=== PATIENT | male | born 1955 | race Caucasian/White ===

== ENCOUNTER 2021-05-31 01:35 | Inpatient (IN) | payer BC, MEDICARE, SELFPAY ==
[2021-05-31] VITALS (22 sets, daily range): BP systolic 107–151; BP diastolic 56–107; PULSE 98–164; RESP 16–34; TEMP 36.6–36.8; O2SAT 90–97; BMI 54.2; BMI 52.7; BMI 47.7
--- NOTE | 2021-05-31 01:44 | ECG_ITS ---
APPROVED REPORT Exam: Resting ECG HR:164 bpm ECG Measurements Heart Rate 164 AXES W[place] 128 P QRSd 120 QRS 111 QT 288 T 34 QTc 475 Conclusion Sinus tachycardia with fusion complexes Right bundle branch block Abnormal ECG Electronically signed by : Ricky Guillermo MD 06/02/2021 06:23:29
--- NOTE | 2021-05-31 01:53 | CT_ITS ---
PROCEDURE INFORMATION: Exam: CT Abdomen And Pelvis With Contrast Exam date and time: 05/31/2021 1:53 AM Age: 66 years old Clinical indication: Nausea; Abdominal pain; Additional info: Abd pain TECHNIQUE: Imaging protocol: Computed tomography of the abdomen and pelvis with contrast. Radiation optimization: All CT scans at this facility use at least one of these dose optimization techniques: automated exposure control; mA and/or kV adjustment per patient size (includes targeted exams where dose is matched to clinical indication); or iterative reconstruction. Contrast material: ISOVUE; Contrast volume: 75 ml; Contrast route: IV; COMPARISON: CR XR HIP BI W PEL1V 05/31/2021 2:16 AM FINDINGS: Lungs: No mass/infiltrate at either lung base. No pleural effusion. Minimal linear atelectasis within the lingula. Liver: The liver is normal in size and attenuation. No intrahepatic biliary dilitation. Gallbladder and bile ducts: Normal. No calcified stones. No ductal dilation. Gallbladder wall thickness is normal. Pancreas: Normal. No ductal dilation. Spleen: Normal. No splenomegaly. Adrenal glands: The right adrenal gland is obscured. The left adrenal gland is felt to be unremarkable. Kidneys and ureters: There is a 2.6 cm exophytic cyst arising from the superior pole the left kidney. No hydronephrosis. Stomach and bowel: Attention is directed to the distal small bowel and adjacent mesentery. There are 2 masses identified within the right hemiabdomen. They appear to arise within or adjacent to portions of the ileum. The more lateral mass measures 6.1 x 5.4 x 9.3 cm. The more medial mass abuts portions of the air-filled sigmoid colon and ileum. It has central cavitation. It measures 10.3 x 9.3 x 9.9 cm. There is no evidence of intestinal obstruction. Appendix: Unremarkable. Intraperitoneal space: Unremarkable. No free air. No significant fluid collection. Retroperitoneal space: Attention is directed to the retroperitoneum. There is a mass identified within the retroperitoneum. The superior extent of the mass is the manuel of the diaphragm. The inferior extent of the mass is the lower poles of the kidneys. The mass encases portions of the inferior vena cava, superior mesenteric artery, and the right renal artery. No evidence of ureteral encasement. It abuts the celiac artery and the left renal artery. It has ill-defined margins. It measures 12.9 x 10.0 x 7.1 cm. Vasculature: Atheromatous calcification noted. No evidence of aortic aneurysm or dissection. Lymph nodes: There are no discrete enlarged lymph nodes identified. Urinary bladder: Diffuse thickening of the wall of the bladder. No evidence of visible mural nodularity. Reproductive: Central prostatic calcification is identified. Bones/joints: There are degenerative changes within the thoracic and lumbar spine. No acute fracture. Soft tissues: Unremarkable. IMPRESSION: 1. There are 2 masses identified within the mesentery. They are likely related to the ileum. Their sizes are as described. The more medial mass contains an area of central cavitation which is contiguous with small bowel. Whether this represents an irregular lumen surrounding an abnormal loop of ileum or this represents a cavitation which communicates with the small bowel is difficult to determine on this examination. 2. Large retroperitoneal mass, as described. Overall primary diagnostic consideration for all masses would be lymphoma. 3. The right adrenal gland cannot be identified as it is contiguous with the retroperitoneal mass. 4. Diffuse thickening of the wall of the bladder. Exact etiology for this finding
--- NOTE | 2021-05-31 01:58 | XR_ITS ---
PROCEDURE INFORMATION: Exam: XR Bilateral Hips Exam date and time: 05/31/2021 1:58 AM Age: 66 years old Clinical indication: Hip pain and pelvic pain; Bilateral TECHNIQUE: Imaging protocol: XR bilateral hips. Views: 2 views of hips with pelvis when performed. COMPARISON: No relevant prior studies available. FINDINGS: Bones/joints: No evidence of acute fracture. There is mild spurring noted along the superior and lateral articular margin of the left femoral head. Mild narrowing of the left hip joint space. There is prominent degenerative changes noted within the lower lumbar spine. Soft tissues: Unremarkable. IMPRESSION: There are mild degenerative changes noted within the left hip. Degenerative changes of the lumbar spine. No evidence of acute fracture. No overlying soft tissue swelling.
--- NOTE | 2021-05-31 01:59 | XR_ITS ---
PROCEDURE INFORMATION: Exam: XR Chest Exam date and time: 05/31/2021 1:59 AM Age: 66 years old Clinical indication: Shortness of breath; Additional info: SOA TECHNIQUE: Imaging protocol: XR of the chest. Views: 2 views. COMPARISON: No relevant prior studies available. FINDINGS: Lungs: Unremarkable. No consolidation. Linear atelectasis or scar at the left lung base. Pleural spaces: Unremarkable. No pleural effusion. No pneumothorax. Heart/Mediastinum: Unremarkable. No cardiomegaly. Bones/joints: Prominent degenerative changes of the thoracic spine. There is narrowing and hypertrophic changes noted within the right acromioclavicular joint. IMPRESSION: 1. No evidence of alveolar consolidation or congestive failure. 2. Minimal linear scar or atelectasis at the left lung base.
[2021-05-31 02:01] LABS: Basophils # 0.1 K/mm3 (0-0.2); Basophils % 0.6 % (0.1-2.0); Eosinophils # 0.2 K/mm3 (0.0-0.4); Eosinophils % 1.4 % (0.1-12.0); Hematocrit 39.7 % (42.0-52.0); Hemoglobin 12.4 g/dL (14.1-18.0); Lymphocytes # 1.7 K/mm3 (0.7-4.5); Lymphocytes % 12.5 % (10-50); Mean Corpuscular HGB Conc 31.2 g/dL (31.8-35.4); Mean Corpuscular Hemoglobin 24.1 pg (27.0-31.2); Mean Corpuscular Volume 77.3 fl (80-94); Mean Platelet Volume 7.7 fl (7.4-10.4); Monocytes # 0.8 K/mm3 (0.1-1.0); Monocytes % 5.8 % (1.7-9.3); Neutrophils # 10.6 K/mm3 (1.8-7.8); Neutrophils % 79.6 % (37.0-80.0); Platelet Count 945 K/mm3 (142-424); Red Blood Count 5.13 M/mm3 (4.60-6.20); Red Cell Distribution Width 18.2 % (11.5-17.5); White Blood Count 13.3 K/mm3 (4.8-10.8)
[2021-05-31 02:25] LABS: Alanine Aminotransferase 34 U/L (12-78); Albumin Level 3.6 g/dl (3.5-5.0); Albumin/Globulin Ratio 1.1 (1.1-1.8); Alkaline Phosphatase 155 U/L (38-126); Aspartate Amino Transferase 50 U/L (17-59); Bilirubin,Total 0.5 mg/dl (0.2-1.3); Carbon Dioxide 19 mmol/L (22.0-30.0); Chloride 102 mmol/L (98-107); Globulin 3.4 g/dL (1.3-3.2); Glucose 180 mg/dl (74-100); Sodium 137 mmol/L (136-145)
[2021-05-31 02:30] LABS: C-Reactive Protein 256.7 mg/L (0-4)
[2021-05-31 02:40] LABS: Erythrocyte Sedimentation Rate 89 mm/hr (0-20)
--- NOTE | 2021-05-31 02:41 | HMH.EDWEAK ---
ED Disposition Clinical Impression: Atrial flutter with rapid ventricular response Abdominal mass Qualifiers: Abdominal location: generalized Qualified Code(s): R19.07 - Generalized intra-abdominal and pelvic swelling, mass and lump Disposition: Admitted As Inpatient Condition on Discharge: Serious Referrals: Provider,Referral, [Primary Care Provider] - - Critical Care Critical Care Time: No Attestation: On 05/31/21, the high probability of a clinically significant, sudden or life threatening deterioration of the following system(s) required my full and direct attention, intervention and personal management. The time I documented below is in addition to time spent performing reported procedures but includes the following listed in this critical care notation. Medical Decision Making - Medical Records Medical records reviewed: Yes: I reviewed the patient's medical records. - Regan Inquiry Pt receiving controlled substance: No Vital Signs: 05/31/21 01:35 05/31/21 02:45 05/31/21 03:06 Temperature 97.8 F Temperature Source Oral Pulse Rate 139 H 134 H Pulse Rate [Right] 164 H Respiratory Rate 26 H 34 H Blood Pressure 127/107 H 114/60 Blood Pressure [Right Arm] 151/98 H Blood Pressure Mean 66 Blood Pressure Mean [Right Arm] 115 02 Sat by Pulse Oximetry 95 97 97 05/31/21 03:49 05/31/21 03:50 05/31/21 04:00 Temperature Temperature Source Pulse Rate 125 H 124 H 126 H Pulse Rate [Right] Respiratory Rate 24 22 22 Blood Pressure 107/65 L 129/72 116/70 Blood Pressure [Right Arm] Blood Pressure Mean 82 77 Blood Pressure Mean [Right Arm] 02 Sat by Pulse Oximetry 91 L 93 L 95 05/31/21 04:15 05/31/21 04:30 05/31/21 04:45 Temperature Temperature Source Pulse Rate 110 H 107 H 105 H Pulse Rate [Right] Respiratory Rate 20 22 22 Blood Pressure 117/67 116/66 111/66 Blood Pressure [Right Arm] Blood Pressure Mean 85 80 77 Blood Pressure Mean [Right Arm] 02 Sat by Pulse Oximetry 95 93 L 93 L - Lab Data Lab results reviewed: Yes: I reviewed the patient's lab results. Lab Results 05/31/21 01:42: WBC 13.3 H, RBC 5.13, Hgb 12.4 L, Hct 39.7 L, MCV 77.3 L, MCH 24.1 L, MCHC 31.2 L, RDW 18.2 H, Plt Count 945 H*, MPV 7.7, Neut % (Auto) 79.6, Lymph % (Auto) 12.5, [place] % (Auto) 5.8, Eos % (Auto) 1.4, Baso % (Auto) 0.6, Neut # (Auto) 10.6 H, Lymph # (Auto) 1.7, [place] # (Auto) 0.8, Eos # (Auto) 0.2, Baso # (Auto) 0.1, ESR 89 H 05/31/21 01:42: Sodium 137, Potassium 4.0, Chloride 102, Carbon Dioxide 19 L, Anion Gap 20.0 H, BUN 28 H, Creatinine 0.90, Estimated Creat Clear 83, Estimated GFR 85, Est GFR ( Amer) 102, Glucose 180 H, Calcium 10.0, Total Bilirubin 0.5, AST 50, ALT 34, Alkaline Phosphatase 155 H, Troponin I < 0.01, C-Reactive Protein 256.7 H, Total Protein 7.0, Albumin 3.6, Globulin 3.4 H, Albumin/Globulin Ratio 1.1, Procalcitonin 0.204 05/31/21 01:42: Lactate 7.3 H 05/31/21 01:42: NT-Pro-B Natriuret Pep 366 H, TSH 6.96 H 05/31/21 01:42: Free T4 2.03 05/31/21 01:43: Salicylates < 1.0 L 05/31/21 02:01: POC Glucose 176 H 05/31/21 02:50: SARS-CoV-2 (PCR) Not detected, Influenza A Untype (PCR) Not detected, Influenza Type B (PCR) Not detected Result diagrams: 05/31/21 01:42 05/31/21 01:42 Orders (Tests/Meds): ED MEDICATIONS Generic Name Dose Route Start Last Admin Trade Name Freq PRN Reason Stop Dose Admin Diltiazem HCl 100 mg/ Sodium 100 mls @ 5 mls/hr 05/31/21 03:00 05/31/21 02:45 Chloride IV 06/30/21 02:59 5 mls/hr .Q20H MARIE Administration Protocol Sodium Chloride 1,000 mls @ 999 mls/hr 05/31/21 02:58 12/16/21 02:58 Sod Chlor 0.9% 1000ml Bag IV 05/31/21 03:58 999 mls/hr .Q1H1M MARIE Administration Sodium Chloride 1,000 mls @ 999 mls/hr 05/31/21 05:00 05/31/21 04:55 Sod Chlor 0.9% 1000ml Bag IV 05/31/21 06:00 999 mls/hr .Q1H1M MARIE Administration Sodium Chloride 1,000 mls @ 999 mls/hr 05/31/21 04:00 05/31/21 04
[2021-05-31 02:53] LABS: Blood Urea Nitrogen 28 mg/dl (9-20); Creatinine Clearance Estimated 83 mL/min (50-200); Estimated Glomerular Filt Rate 85 ml/min (>60); GFR (African American) 102 ML/MIN (>60)
[2021-05-31 02:55] LABS: Salicylate < 1.0 mg/dL (2.0-20.0)
[2021-05-31 02:55] LABS: Lactic Acid 7.3 mmol/L (0.7-2.1)
[2021-05-31 03:02] LABS: NT Pro Brain Natriuretic Pep. 366 pg/mL (0-125)
[2021-05-31 03:06] LABS: Coronavirus 19, PCR Not Detected (NotDetected); Influenza A, PCR Not Detected (NotDetected); Influenza B, PCR Not Detected (NotDetected)
[2021-05-31 03:07] LABS: Troponin I < 0.01 ng/ml (0.00-0.034)
[2021-05-31 03:10] LABS: Procalcitonin 0.204 ng/mL (0.0-2.0)
[2021-05-31 03:11] LABS: Free T4 (Free Thyroxine) 2.03 ng/dl (0.78-2.19)
[2021-05-31 03:24] LABS: Thyroid Stimulating Hormone 6.96 uIU/mL (0.465-4.68)
--- NOTE | 2021-05-31 03:24 | PC.NURSE ---
pt to ct w/ S Akanksha RN at side
--- NOTE | 2021-05-31 03:50 | PC.NURSE ---
Titrated Cardizem gtt to 15ml/hr, pt assisted into recliner on return from ct scan
--- NOTE | 2021-05-31 04:46 | ECG_ITS ---
APPROVED REPORT Exam: Resting ECG HR:105 bpm ECG Measurements Heart Rate 105 AXES VA 168 P 28 QRSd 140 QRS -29 QT 374 T -3 QTc 494 Conclusion Sinus tachycardia Right bundle branch block Abnormal ECG Electronically signed by : Ricky Guillermo MD 06/02/2021 06:23:18
[2021-05-31 04:48] LABS: POC Glucose,Bedside 176 (70-110)
--- NOTE | 2021-05-31 04:48 | PC.NURSE ---
Appears on tele that pt has converted to SR. 2nd EKG obtained and per MD stop cardizem. No new orders at this time for PO cardizem.
--- NOTE | 2021-05-31 04:50 | PC.NURSE ---
brought back to room to discuss POC and results with Dr. Álvarez.
--- NOTE | 2021-05-31 05:22 | PC.NURSE ---
Dr. Álvarez s/w Dr. Guillermo
[2021-05-31 05:23] LABS: Reflex Lactic Add Lactic Reflex
--- NOTE | 2021-05-31 05:24 | PC.NURSE ---
notified warehouse order filler that pt needed a bed
[2021-05-31 05:43] LABS: Lactic Acid Follow Up (RFLX 1) 3.1 mmol/L (0.7-2.1)
[2021-05-31 05:48] LABS: Troponin I < 0.01 ng/ml (0.00-0.034)
--- NOTE | 2021-05-31 06:15 | PC.NURSE ---
Report given to Barbie SEVILLA on fl
--- NOTE | 2021-05-31 06:49 | PC.NURSE ---
patient up to floor via wheelchair @ this time.
[2021-05-31 07:23] LABS: Reflex Lactic (2 hrs) Add Lactic Reflex
--- NOTE | 2021-05-31 07:28 | P.CONPHA_ITS ---
[facility] Pharmacy VTE Monitoring - Patient Demographics Admission date: 05/31/21 Report Date: 05/31/21 Time: 07:30 Allergies/Adverse Reactions: Patient Allergies No Known Allergies Allergy (Verified 05/31/21 01:51) Height: 1.85 m Weight: 163.3 kg Patient Problems: Current Active Problems Abdominal mass (Acute) Atrial flutter with rapid ventricular response (Acute) - VTE Risk Labs: VTE Related Lab Results Hgb 12.4 g/dL (14.1-18.0) L 05/31/21 01:42 Hct 39.7 % (42.0-52.0) L 05/31/21 01:42 Plt Count 945 K/mm3 (142-424) H* 05/31/21 01:42 BUN 28 mg/dl (9-20) H 05/31/21 01:42 Creatinine 0.90 mg/dl (0.66-1.25) 05/31/21 01:42 Estimated Creat Clear 83 mL/min (50-200) 05/31/21 01:42 Clinical Trial Participant: No - Prophylaxis VTE Prophylaxis Ordered?: Yes Types of VTE Prophylaxis: TEDS Knee High
--- NOTE | 2021-05-31 08:00 | CA_ITS ---
APPROVED REPORT EXAM: Comprehensive 2D, Doppler, and color-flow Echocardiogram Business Banking Officer: Juliann Levi CRT Ht: 6 ft 1 in Wt: 400lbs BSA: 2.89 BP: 111/66 mmHg Indications: Shortness of Breath, Obesity, Atrial Flutter 2D Dimensions LVOT 2.49 cm (M/F) 1.5-2.5 LA Volume 69.80 mL LA Volume Index 24.20 mL/m2 (M/F) 16-34 M-Mode Dimensions RVDd 3.73 cm (0.9-2.6) LA Diam 3.55 cm (1.9-4.0) LVDd 5.37 cm (3.5-5.7) Ao Diam 4.80 cm (2.0-3.7) LVDs 3.87 cm (3.5-5.7) IVSd 1.63 cm (0.6-1.1) PWd 0.66 cm (0.6-1.1) EF (Teich) 53.60% FS 27.90% EDV (Teich) 139.50 mL TAPSE 1.97 (<1.7) ESV (Teich) 64.70 mL LV Diastology E Decel Time 150.00 (160-240 msec) E/A Ratio 0.41 MED E' 4.30 (< 7 cm/sec) MED A' 13.40 cm/s E'/MED E' Ratio 8.28 (>14) LAT E' 12.50 (<10 cm/sec) LAT A' 14.00 cm/s E/LAT E' Ratio 2.85 (>14) Aortic Valve AO Peak GR. 7.20 mmHg Mitral Valve MV E Max Juancarlos. 36.00 (40-130 cm/s) MV A Velocity 87.00 (40-130 cm/s) E/A Ratio 0.41 MV Decel. Time 150.00 (160-240 ms) MV PHT 44.00 ms Pulmonary Valve PV Peak Velocity 118.00 (50-150 cm/s) Tricuspid Valve TR P. Velocity 169.00 cm/s RAP Estimate 10.00 mmHg RVSP 21.40 mmHg Left Ventricle Left atrium is mildly enlarged, left ventricle is normal size, mild concentric left ventricular hypertrophy, visually estimated ejection fraction 55% with no regional wall motion abnormality, diastolic parameters are inconclusive. Right Ventricle Right atrium and right ventricle mildly enlarged with normal contractility. Aortic Valve Aortic valve is minimally thickened and fibrosed, there is no aortic stenosis or aortic insufficiency. Mitral Valve Mitral valve grossly normal, there is trace mitral regurgitation. Tricuspid Valve Tricuspid grossly normal, there is trace tricuspid regurgitation, tricuspid regurgitation jet velocity is inadequate for calculation of the right ventricular systolic pressure. Pulmonic Valve Pulmonic valve is poorly visualized. Great Vessels Aortic root is normal size. Inferior vena cava is poorly visualized. Pericardium No significant pericardial effusion noted. Conclusion 1. Mild biatrial enlargement, normal left ventricular size, mild concentric left ventricular hypertrophy, visually estimated ejection fraction 55% with no regional wall motion abnormality, diastolic parameters are inconclusive. 2. Mildly enlarged right ventricle with normal contractility. 3. Trace mitral and tricuspid regurgitation. 4. No significant pericardial effusion noted. 5. Inferior vena cava is poorly visualized. Electronically signed by : Alireza Goodson MD 05/31/2021 13:53:55
--- NOTE | 2021-05-31 08:34 | HMH.GSCON ---
*Admission Date: 05/31/21 *Reason for consult:: Abdominal masses *History of present illness: This is a 66-year-old gentleman who was seen in the emergency department for evaluation regarding weakness and abdominal pain/bloating. Evaluation included a CT scan that revealed complex mass-like lesions within the distal small bowel, as well as, retroperitoneal mass with encasement of the IVC. Review of Systems - Constitutional Denies chills - Eyes Denies change in vision - *Cardiovascular Denies chest pain - *Respiratory Denies cough - *Gastrointestinal Reports abdominal pain, Reports bloating - *Neurologic Denies seizure-like activity [facility] History Medical History: Denies:: Cancer, Diabetes Mellitus Type 1, Diabetes Mellitus Type 2, MRSA *Have you ever received a pneumonia vaccine?: No *Have you received a flu vaccine this season?: No Laterality Cases: Bilateral: Tonsillectomy Amputation: No Fractures: No - *Social History Last grade of school completed: 11th or 12th Smoking Status: Never smoker Alcohol Intake: never *Occupational Status:: retired Housing: house Household Members: spouse *Travel in the last 8 weeks: None Family Hx:: No significant family history Meds Home Medications Medication Instructions Recorded Confirmed Type No Known Home Medications 05/31/21 05/31/21 History Allergies Allergy/AdvReac Type Severity Reaction Status Date / Time No Known Allergies Allergy Verified 05/31/21 01:51 Exam Vital signs and Labs for Last 24 Hours: Temp Pulse Resp BP Pulse Ox 98.2 F 103 H 21 114/72 93 L 05/31/21 06:17 05/31/21 06:17 05/31/21 06:17 05/31/21 06:17 05/31/21 06:00 Laboratory Results - last 24 hr 05/31/21 01:42: WBC 13.3 H, RBC 5.13, Hgb 12.4 L, Hct 39.7 L, MCV 77.3 L, MCH 24.1 L, MCHC 31.2 L, RDW 18.2 H, Plt Count 945 H*, MPV 7.7, Neut % (Auto) 79.6, Lymph % (Auto) 12.5, [place] % (Auto) 5.8, Eos % (Auto) 1.4, Baso % (Auto) 0.6, Neut # (Auto) 10.6 H, Lymph # (Auto) 1.7, [place] # (Auto) 0.8, Eos # (Auto) 0.2, Baso # (Auto) 0.1, ESR 89 H 05/31/21 01:42: Sodium 137, Potassium 4.0, Chloride 102, Carbon Dioxide 19 L, Anion Gap 20.0 H, BUN 28 H, Creatinine 0.90, Estimated Creat Clear 83, Estimated GFR 85, Est GFR ( Amer) 102, Glucose 180 H, Calcium 10.0, Total Bilirubin 0.5, AST 50, ALT 34, Alkaline Phosphatase 155 H, Troponin I < 0.01, C-Reactive Protein 256.7 H, Total Protein 7.0, Albumin 3.6, Globulin 3.4 H, Albumin/Globulin Ratio 1.1, Procalcitonin 0.204 05/31/21 01:42: Lactate 7.3 H 05/31/21 01:42: NT-Pro-B Natriuret Pep 366 H, TSH 6.96 H 05/31/21 01:42: Free T4 2.03 05/31/21 01:43: Salicylates < 1.0 L 05/31/21 02:01: POC Glucose 176 H 05/31/21 02:50: SARS-CoV-2 (PCR) Not detected, Influenza A Untype (PCR) Not detected, Influenza Type B (PCR) Not detected 05/31/21 05:16: Troponin I < 0.01 05/31/21 05:16: Lactate 3.1 H I & O for Last 24 hours: Intake & Output 05/28/21 05/29/21 05/30/21 05/31/21 11:59 11:59 11:59 11:59 Intake Total 3000 / 3000 Balance 3000 / 3000 Weight 360 lb 0.238 oz Radiology Reports for the Last 24 Hours: CT scan of abdomen/pelvis IMPRESSION: 1. There are 2 masses identified within the mesentery. They are likely related to the ileum. Their sizes are as described. The more medial mass contains an area of central cavitation which is contiguous with small bowel. Whether this represents an irregular lumen surrounding an abnormal loop of ileum or this represents a cavitation which communicates with the small bowel is difficult to determine on this examination. 2. Large retroperitoneal mass, as described. Overall primary diagnostic consideration for all masses would be lymphoma. 3. The right adrenal gland cannot be identified as it is contiguous with the retroperitoneal mass. 4. Diffuse thickening of the wall of the bladder. Exact etiology for this finding is uncertain although the possibility of underlying neoplasm in
[2021-05-31 09:32] LABS: Lactic Acid Follow up (RFLX 2) 2.7 mmol/L (0.7-2.1)
[2021-05-31 09:43] LABS: Troponin I < 0.01 ng/ml (0.00-0.034)
--- NOTE | 2021-05-31 09:43 | CT_ITS ---
PROCEDURE: [facility] CLINICAL HISTORY: retroperitoneal mass COMPARISON: CT CT ABDOMEN PELVIS W CON from 05/31/2021 TECHNIQUE: Patient was scheduled for a right-sided retroperitoneal biopsy. However, when the patient was placed on his stomach the posterior costophrenic sulcus extended below the intended area of biopsy. It was noted on the pre biopsy images that there was a destructive lesion of the left L1 transverse process with a paraspinal mass. This area was then targeted for biopsy. Following obtaining informed consent and time-out procedure with moderate sedation with 1 mg of Versed and 50 mcg of fentanyl IV with close monitoring of the patient's vitals, under aseptic technique and local anesthesia with 1 percent buffered lidocaine, guiding needle was inserted into the left paraspinal mass. Three core biopsies were obtained through the guiding needle and put in formalin and 3 additional core biopsies were obtained and put in RPMI. FNA was performed with the indwelling needle following the biopsies. The patient tolerated the procedure well without evidence of immediate complication. FINDINGS: Pathology: Large B-cell lymphoma. Please see pathologist report. IMPRESSION: Uneventful and successful CT guided biopsy of the left paraspinal mass demonstrating large B-cell lymphoma. Dictated by: Hi Carty MD 06/05/2021 08:36 Hi Carty MD in [place] 06/05/2021 08:36
--- NOTE | 2021-05-31 13:33 | CT_ITS ---
PROCEDURE: CT CHEST WO CON CLINICAL INDICATION: CT BX Retroperitoneal mass COMPARISON: CT CT ABDOMEN PELVIS W CON from 05/31/2021 TECHNIQUE: Axial images obtained with sagittal and coronal reformats. All CT scans at the facility use one or more dose reduction, viz: automated exposure control, ma/kV adjustment per patient size (including targeted exams where dose is matched to indication, i.e. head), or iterative reconstruction technique. FINDINGS: CT chest performed without contrast for planning purposes look for other areas to biopsy besides the risky retroperitoneal mass. Mildly prominent node is present in the left supraclavicular region just to the left of the thyroid gland measuring 2.5 x 2.7 cm. No axillary mass was identified. No axillary adenopathy. No mediastinal or hilar mass. Atelectatic or fibrotic changes are present in the right lower lobe. Mild pleural thickening in the right lower lobe posteriorly. Mild atelectasis or fibrosis in the lingula and left lower lobe. There is a pathologic fracture involving the right 3rd rib laterally with minimal medial displacement of the anterior fracture fragment with overlying soft tissue swelling. A lytic lesion involves the right 7th rib laterally with overlying soft tissue swelling/mass lytic lesion involves the right 2nd rib laterally with overlying soft tissue prominence pleural thickening is present medial to the left 7th rib with some faint lytic areas in the 7th rib at this area. There are degenerative changes of the thoracic spine. A lytic lesion is also present involving the right 6th rib posteriorly with some overlying pleural thickening. There is a lytic lesion involving the base of the acromion on the left. Retroperitoneal mass centrally and on the right once again noted. While reviewing the previous abdomen CT there was noted to be a paraspinal mass on the left at the L1 area causing destruction of the transverse process on the left. This lesion was the area targeted for biopsy and not a risky retroperitoneal mass. IMPRESSION: Numerous skeletal metastasis as described above including bilateral ribs with pathological fractures as well as the base of the left acromion and the left L1 transverse process with overlying soft tissue mass left supraclavicular adenopathy also noted. Dictated by: Hi Carty MD 05/31/2021 16:40 Hi Carty MD in [place] 05/31/2021 16:40
--- NOTE | 2021-05-31 14:54 | PC.NURSE ---
PATEINT SEDATED DURING BIOPSY PER RADIOLOGIST DR STREETER INSTRUCTIONS.
--- NOTE | 2021-05-31 16:47 | PC.NURSE ---
patient has had no complaints this shift. rings out as needed. alert and oriented. back from biopsy in radiology with no issues noted. bandaid to puncture site. family has been at bedside. discussion with patient he wishes to be a DNR. heart rate has done well with the po cardizem in low 100s. md stated patient didnt need any fluids, and after procedure could have a soft mech diet.
--- NOTE | 2021-05-31 16:47 | HMH.HP ---
*Admission Date: 05/31/21 *Chief complaint: Weakness/tachycardia *History of present illness: 66-year-old white male who has not seen a doctor since Dr. Drummond in 2012, and he rarely went to the physician even before that, who presented to the emergency department at the behest of his early this morning because of 3 to 4 months of increasing weakness, fatigue, bloating and generalized pain. He has had shoulder pain, side pain and back pain. He has been taking quite a bit of aspirin, but stopped this about 4 5 days ago, and took a couple of Aleve 3 days ago which helped his shoulder pain. He finally got to the point where he was unable to walk around because of his global weakness and came to the hospital. In the emergency department he was found to be in atrial fib/flutter with a rate of 160. Also found to have significant abnormalities on a CT scan of his abdomen with a large retroperitoneal mass, some small bowel masses consistent with lymphoma and was admitted to the hospital for further evaluation. In discussion with him it turns out his father was diagnosed with some type of lymphoma that was rapidly advanced, and he 2 days later at [facility] from overwhelming disease. He has a sister who has breast cancer, no other significant family history. He has never participated in any kind of healthcare maintenance, cancer screening or other programs. [facility] History I have reviewed the patient's past medical history: Yes Medical History: Denies:: Cancer, Diabetes Mellitus Type 1, Diabetes Mellitus Type 2, MRSA *Have you ever received a pneumonia vaccine?: No *Have you received a flu vaccine this season?: No Laterality Cases: Bilateral: Tonsillectomy Amputation: No Fractures: No - *Social History Last grade of school completed: 11th or 12th Smoking Status: Never smoker Alcohol Intake: never *Occupational Status:: retired Housing: house Household Members: spouse *Travel in the last 8 weeks: None Family Hx:: No significant family history Review of Systems - Review of Systems Review of systems:: pertinent systems reviewed and negative unless documented below - *Neurologic Denies seizure-like activity Meds Home Medications Medication Instructions Recorded Confirmed Type No Known Home Medications 05/31/21 05/31/21 History Allergies Allergy/AdvReac Type Severity Reaction Status Date / Time No Known Allergies Allergy Verified 05/31/21 01:51 Exam Vital signs and Labs for Last 24 Hours: Temp Pulse Resp BP Pulse Ox 97.8 F 105 H 18 130/74 91 L 05/31/21 16:00 05/31/21 16:00 05/31/21 16:00 05/31/21 16:00 05/31/21 16:00 Laboratory Results - last 24 hr 05/31/21 01:42: WBC 13.3 H, RBC 5.13, Hgb 12.4 L, Hct 39.7 L, MCV 77.3 L, MCH 24.1 L, MCHC 31.2 L, RDW 18.2 H, Plt Count 945 H*, MPV 7.7, Neut % (Auto) 79.6, Lymph % (Auto) 12.5, [place] % (Auto) 5.8, Eos % (Auto) 1.4, Baso % (Auto) 0.6, Neut # (Auto) 10.6 H, Lymph # (Auto) 1.7, [place] # (Auto) 0.8, Eos # (Auto) 0.2, Baso # (Auto) 0.1, ESR 89 H 05/31/21 01:42: Sodium 137, Potassium 4.0, Chloride 102, Carbon Dioxide 19 L, Anion Gap 20.0 H, BUN 28 H, Creatinine 0.90, Estimated Creat Clear 83, Estimated GFR 85, Est GFR ( Amer) 102, Glucose 180 H, Calcium 10.0, Total Bilirubin 0.5, AST 50, ALT 34, Alkaline Phosphatase 155 H, Troponin I < 0.01, C-Reactive Protein 256.7 H, Total Protein 7.0, Albumin 3.6, Globulin 3.4 H, Albumin/Globulin Ratio 1.1, Procalcitonin 0.204 05/31/21 01:42: Lactate 7.3 H 05/31/21 01:42: NT-Pro-B Natriuret Pep 366 H, TSH 6.96 H 05/31/21 01:42: Free T4 2.03 05/31/21 01:43: Salicylates < 1.0 L 05/31/21 02:01: POC Glucose 176 H 05/31/21 02:50: SARS-CoV-2 (PCR) Not detected, Influenza A Untype (PCR) Not detected, Influenza Type B (PCR) Not detected 05/31/21 05:16: Troponin I < 0.01 05/31/21 05:16: Lactate 3.1 H 05/31/21 08:58: Troponin I < 0.01 05/31/21 08:58: Lactate 2.7 H I & O for Last 24 hours:
[2021-06-01] VITALS (8 sets, daily range): BP systolic 122–138; BP diastolic 66–79; PULSE 95–121; RESP 16–22; TEMP 36.7–37.1; O2SAT 92–95; BMI 48.1
[2021-06-01 06:40] LABS: Microscopic, Urine URINE MICROSCOPIC (MICROSCOPIC)
[2021-06-01 06:43] LABS: Appearance,Urine CLEAR (Clear); Blood, Urine TRACE-I (Negative); Color,Urine YELLOW (Yellow); Glucose,Urine (UA) Negative (Negative); Ketones,Urine Negative (Negative); Leukocyte Esterase,Urine 2+ (Negative); Nitrate,Urine Negative (Negative); PH,Urine 8.5 (5.0-8.5); Protein,Urine 1+ (Negative)
[2021-06-01 06:46] LABS: Bilirubin,Urine 1+ (Negative)
[2021-06-01 07:04] LABS: Amorphous Sediment,Urine 1+ /lpf; Bacteria,Urine 3+ /lpf; Squamous Epithelial Cell,Urine Occasional #/hpf (0-5)
--- NOTE | 2021-06-01 07:11 | P.PN_ITS ---
Subjective Narrative: He states that he feels a bit better this morning . He underwent biopsy of his retroperitoneal mass in the radiology department yesterday. He is without complaint with regard to significant pain from the procedure. Progress Note: A&P (1) Abdominal mass Status: Acute (2) Atrial flutter with rapid ventricular response Status: Acute (3) Retroperitoneal mass Status: Acute Assessment and plan: Overall, doing well status post biopsy in the radiology department yesterday. The patient will likely be evaluated by surgical oncology/medical oncology/radia tion oncology at a tertiary care center in the very near future in order to plan/discuss treatment options. Exam Vital signs and Labs for Last 24 Hours: Temp Pulse Resp BP Pulse Ox 98.1 F 107 H 18 138/66 95 06/01/21 04:00 06/01/21 04:00 06/01/21 04:00 06/01/21 04:00 06/01/21 04:00 Laboratory Results - last 24 hr 05/31/21 08:58: Troponin I < 0.01 05/31/21 08:58: Lactate 2.7 H 06/01/21 06:38: Urine Color Yellow, Urine Appearance Clear, Urine pH 8.5, Ur Specific [place] 1.010, Urine Protein 1+, Urine Glucose (UA) Negative, Urine Ketones Negative, Urine Blood Trace-i, Urine Nitrate Negative, Urine Bilirubin 1+ A, Urine Urobilinogen 1.0, Ur Leukocyte Esterase 2+ A, Urine RBC 3-5, Urine WBC 5-10, Ur Squamous Epith Cells Occasional, Amorphous Sediment 1+, Urine Bacteria 3+ I & O for Last 24 hours: Intake & Output 05/29/21 05/30/21 05/31/21 06/01/21 11:59 11:59 11:59 11:59 Intake Total 3000 / 3000 240 / 240 Output Total 500 / 500 Balance 3000 / 3000 -260 / -260 Weight 360 lb 0.238 oz 363 lb 5.149 oz - Constitutional no acute distress - *Routine Respiratory Exam Absent: respiratory distress - *Routine Abdominal Exam Present: soft
--- NOTE | 2021-06-01 07:47 | HMH.ACPN2 ---
Internal Medicine - PN: Subj *Date: 06/01/21 *Time: 08:30 Interval history: Overnight had a fall, legs weak when got up from toilet. Fell to wall and slide to floor. No trauma. Fatigued this morning. No SOA, CP, SHEPPARD. significant fatigue. Afebrile overnight. remains tachycardic. Still on telemetry, no events overnight. Reviewed plan and answered questions with at bedside. Exam Vital signs and Labs for Last 24 Hours: Temp Pulse Resp BP Pulse Ox 98.3 F 108 H 21 132/79 93 L 06/01/21 07:36 06/01/21 07:36 06/01/21 07:36 06/01/21 07:36 06/01/21 07:36 Laboratory Results - last 24 hr 05/31/21 08:58: Troponin I < 0.01 05/31/21 08:58: Lactate 2.7 H 06/01/21 06:38: Urine Color Yellow, Urine Appearance Clear, Urine pH 8.5, Ur Specific [place] 1.010, Urine Protein 1+, Urine Glucose (UA) Negative, Urine Ketones Negative, Urine Blood Trace-i, Urine Nitrate Negative, Urine Bilirubin 1+ A, Urine Urobilinogen 1.0, Ur Leukocyte Esterase 2+ A, Urine RBC 3-5, Urine WBC 5-10, Ur Squamous Epith Cells Occasional, Amorphous Sediment 1+, Urine Bacteria 3+ I & O for Last 24 hours: Intake & Output 05/29/21 05/30/21 05/31/21 06/01/21 23:59 23:59 23:59 23:59 Intake Total 3240 / 3240 60 / 60 Output Total 500 / 500 0 / 0 Balance 2740 / 2740 60 / 60 Weight 163.3 kg 164.8 kg Narrative: - Constitutional minimal distress, morbidly obese - *Routine HEENT Exam Head: Present: normocephalic Eye: Present: EOMI, PERRL ENT: Present: mucous membranes dry - *Routine Neck Exam Present: supple. Absent: lymphadenopathy - *Routine Respiratory Exam Present: CTA bilaterally - *Routine Cardiovascular Exam Present: RRR - *Routine Abdominal Exam Present: soft, normoactive bowel sounds, distended, obese. Absent: tenderness - lesion on back at sight of needle biopsy non tender, CDI, no bleeding - *Routine Extremities Exam Absent: cyanosis, clubbing, edema - *Routine Skin Exam Present: pallor, warm. Absent: rash - *Routine Neurological Exam Present: alert, oriented X3 Assessment and Plan (1) Abdominal mass Status: Acute Qualifiers: Abdominal location: generalized Qualified Code(s): R19.07 - Generalized intra-abdominal and pelvic swelling, mass and lump Category: Medical Code(s): R19.00 - Intra-abdominal and pelvic swelling, mass and lump, unspecified site (2) Atrial flutter with rapid ventricular response Status: Acute Category: Medical Code(s): I48.92 - Unspecified atrial flutter (3) Retroperitoneal mass Status: Acute Category: Medical Code(s): R19.00 - Intra-abdominal and pelvic swelling, mass and lump, unspecified site (4) Thrombocytosis Status: Acute Category: Medical Code(s): D75.839 - Thrombocytosis, unspecified (5) Macrocytic anemia Status: Acute Category: Medical Code(s): D53.9 - Nutritional anemia, unspecified (6) Hypothyroid Status: Acute Category: Medical Code(s): E03.9 - Hypothyroidism, unspecified - Assessment and plan all Dx Assessment and Plan for all problems:: 66yo M with new diagnosis of retroperitoneal mass, thrombocytosis, anemia. DDX includes lymphoma, infection, leukemia, other neoplasm. Biopsy performed yesterday, results pending. Continue to monitor for improvment in fagitue. PT consult today Surgery adn radiology consulted, appreciate recs. Continue p.o. Cardizem for his atrial fibrillation. - Labs in the am including LDH, Urate DC criteria improvement in heart rate, lab stability, preliminary diagnosis/pathology, and plan for PT/Debility.
[2021-06-02] VITALS (10 sets, daily range): BP systolic 111–126; BP diastolic 53–72; PULSE 90–117; RESP 17–21; TEMP 36.7–37.2; O2SAT 90–95; BMI 48.4
[2021-06-02 05:51] LABS: Basophils % 0.3 % (0.1-2.0); Eosinophils # 0.1 K/mm3 (0.0-0.4); Eosinophils % 0.6 % (0.1-12.0); Hematocrit 31.7 % (42.0-52.0); Lymphocytes # 0.7 K/mm3 (0.7-4.5); Lymphocytes % 5.7 % (10-50); Mean Corpuscular HGB Conc 31.5 g/dL (31.8-35.4); Mean Corpuscular Hemoglobin 23.8 pg (27.0-31.2); Mean Corpuscular Volume 75.5 fl (80-94); Mean Platelet Volume 7.8 fl (7.4-10.4); Monocytes # 0.6 K/mm3 (0.1-1.0); Monocytes % 4.7 % (1.7-9.3); Neutrophils # 11.2 K/mm3 (1.8-7.8); Neutrophils % 88.8 % (37.0-80.0); Platelet Count 541 K/mm3 (142-424); Red Cell Distribution Width 18.5 % (11.5-17.5); White Blood Count 12.6 K/mm3 (4.8-10.8)
[2021-06-02 05:57] LABS: MANUAL DIFFERENTIAL MANUAL DIFFERENTIAL (MANUAL DIFF)
[2021-06-02 06:04] LABS: Alanine Aminotransferase 17 U/L (12-78); Albumin Level 2.9 g/dl (3.5-5.0); Alkaline Phosphatase 116 U/L (38-126); Anion Gap 8.7 mEq/L (5-15); Aspartate Amino Transferase 46 U/L (17-59); Bilirubin,Total 0.6 mg/dl (0.2-1.3); Blood Urea Nitrogen 26 mg/dl (9-20); Calcium 8.7 mg/dl (8.4-10.2); Carbon Dioxide 28 mmol/L (22.0-30.0); Chloride 105 mmol/L (98-107); Creatinine Clearance Estimated 81 mL/min (50-200); Estimated Glomerular Filt Rate 113 ml/min (>60); GFR (African American) 137 ML/MIN (>60); Glucose 92 mg/dl (74-100); Lactate Dehydrogenase 750 U/L (313-618); Magnesium 1.9 mg/dl (1.6-2.3); Potassium 3.7 mmoL/L (3.5-5.1); Sodium 138 mmol/L (136-145); Total Protein,Serum 5.9 g/dl (6.3-8.2)
[2021-06-02 06:16] LABS: Anisocytosis 1+; Lymphocytes % 9 % (10-50); Monocytes % 2 % (2-9); Neutrophils % 81 % (42-76); Platelet Estimate Slight Increase; Total Cells Counted 100
[2021-06-02 06:17] LABS: Hypochromasia 1+; Microcytosis 2+
--- NOTE | 2021-06-02 06:58 | PC.NURSE ---
pt rested well through the night, no issues, pt up to bsc with assist
--- NOTE | 2021-06-02 09:15 | HMH.DCSUM ---
General - General Admission date:: 05/31/21 Discharge date: 06/02/21 HPI HPI: 66-year-old white male who has not seen a doctor since Dr. Drummond in 2012, and he rarely went to the physician even before that, who presented to the emergency department at the behest of his early this morning because of 3 to 4 months of increasing weakness, fatigue, bloating and generalized pain. He has had shoulder pain, side pain and back pain. He has been taking quite a bit of aspirin, but stopped this about 4 5 days ago, and took a couple of Aleve 3 days ago which helped his shoulder pain. He finally got to the point where he was unable to walk around because of his global weakness and came to the hospital. In the emergency department he was found to be in atrial fib/flutter with a rate of 160. Also found to have significant abnormalities on a CT scan of his abdomen with a large retroperitoneal mass, some small bowel masses consistent with lymphoma and was admitted to the hospital for further evaluation. In discussion with him it turns out his father was diagnosed with some type of lymphoma that was rapidly advanced, and he 2 days later at [facility] from overwhelming disease. He has a sister who has breast cancer, no other significant family history. He has never participated in any kind of healthcare maintenance, cancer screening or other programs. Hospital Course Hospital Course: Patient was admitted. CT scans revealed very ominous findings of retroperitoneal mass, small bowel mass, in the mesentery and lung findings and even bony mets consistent with probable lymphoma. Patient was able to undergo a retroperitoneal mass biopsy through CT-guided testing without complications. His biopsy results are pending today. Penny fernández was treated with diltiazem intravenously and then orally. Is tolerated this fairly well. His blood pressure has been somewhat low but with some IV fluids and is increasing functional status after heart rate was better he has improved slightly. This morning he was able to get up and use the bedside commode by himself. Able to transfer to the chair. Plan okay to discharge home today on Cardizem 3 times daily with short-term office follow-up in my office on Friday. He will hopefully have his biopsy back then and they would need we can discuss oncology referral or other options for care. Objective Vital signs: Temp Pulse Resp BP Pulse Ox 98.1 F 98 H 18 111/54 L 90 L 06/02/21 07:52 06/02/21 08:00 06/02/21 07:52 06/02/21 07:52 06/02/21 07:52 no acute distress, morbidly obese, chronically ill appearing - *Routine HEENT Exam Head: Present: normocephalic Eye: Present: EOMI, PERRL ENT: Present: mucous membranes moist - *Routine Neck Exam Present: supple - *Routine Respiratory Exam Present: CTA bilaterally - *Routine Cardiovascular Exam Present: RRR - *Routine Abdominal Exam Present: soft, normoactive bowel sounds. Absent: tenderness - *Routine Extremities Exam Absent: cyanosis, clubbing, edema - *Routine Skin Exam Present: warm. Absent: rash - *Routine Neurological Exam Present: alert, oriented X3 Globally weak, no other functional deficits - Detailed Eye Exam Eyelids: Bilateral normal inspection Results Labs on day of discharge: Labs from last 24 hours 06/02/21 06/02/21 05:20 05:20 WBC 12.6 H RBC 4.20 L Hgb 10.0 L Hct 31.7 L MCV 75.5 L MCH 23.8 L MCHC 31.5 L RDW 18.5 H Plt Count 541 H D MPV 7.8 Neut % (Auto) 88.8 H Lymph % (Auto) 5.7 L [place] % (Auto) 4.7 Eos % (Auto) 0.6 Baso % (Auto) 0.3 Neut # (Auto) 11.2 H Lymph # (Auto) 0.7 [place] # (Auto) 0.6 Eos # (Auto) 0.1 Baso # (Auto) 0.0 Total Counted 100 Neutrophils % (Manual) 81 H Band Neutrophils % 8.0 Lymphocytes % (Manual) 9 L Monocytes % (Manual) 2 Platelet Estimate Slight increase Hypochromasia 1+ Ani
--- NOTE | 2021-06-02 09:27 | HMH.ACPN2 ---
Internal Medicine - PN: Subj *Date: 06/02/21 *Time: 09:27 Interval history: Overall patient feels little stronger. Was able to get up and use the bedside commode. Has been able to get up in a chair this morning. Exam Vital signs and Labs for Last 24 Hours: Temp Pulse Resp BP Pulse Ox 98.1 F 98 H 18 111/54 L 90 L 06/02/21 07:52 06/02/21 08:00 06/02/21 07:52 06/02/21 07:52 06/02/21 07:52 Laboratory Results - last 24 hr 06/02/21 05:20: WBC 12.6 H, RBC 4.20 L, Hgb 10.0 L, Hct 31.7 L, MCV 75.5 L, MCH 23.8 L, MCHC 31.5 L, RDW 18.5 H, Plt Count 541 H D, MPV 7.8, Neut % (Auto) 88.8 H, Lymph % (Auto) 5.7 L, [place] % (Auto) 4.7, Eos % (Auto) 0.6, Baso % (Auto) 0.3, Neut # (Auto) 11.2 H, Lymph # (Auto) 0.7, [place] # (Auto) 0.6, Eos # (Auto) 0.1, Baso # (Auto) 0.0, Total Counted 100, Neutrophils % (Manual) 81 H, Band Neutrophils % 8.0, Lymphocytes % (Manual) 9 L, Monocytes % (Manual) 2, Platelet Estimate Slight increase, Hypochromasia 1+, Anisocytosis 1+, Microcytosis 2+ 06/02/21 05:20: Sodium 138, Potassium 3.7, Chloride 105, Carbon Dioxide 28, Anion Gap 8.7, BUN 26 H, Creatinine 0.70 D, Estimated Creat Clear 81, Estimated GFR 113, Est GFR ( Amer) 137 D, Glucose 92, Uric Acid 7.0, Calcium 8.7, Magnesium 1.9, Total Bilirubin 0.6, AST 46, ALT 17 D, Alkaline Phosphatase 116, Lactate Dehydrogenase 750 H, Total Protein 5.9 L, Albumin 2.9 L, Globulin 3.0, Albumin/Globulin Ratio 1.0 L I & O for Last 24 hours: Intake & Output 05/30/21 05/31/21 06/01/2106/02/21 11:59 11:59 11:59 11:59 Intake Total 3000 / 3000 300 / 300 480 / 480 Output Total 500 / 500 Balance 3000 / 3000 -200 / -200 480 / 480 Weight 360 lb 0.238 oz 363 lb 5.149 oz 365 lb 11.95 oz Microbiology Reports for the Last 24 Hours: Microbiology 06/01/21 06:38 Urine,Clean Catch Urine Culture - Preliminary 05/31/21 01:42 Blood Blood Culture - Preliminary NO GROWTH AFTER 48 HOURS 05/31/21 01:42 Blood Blood Culture - Preliminary NO GROWTH AFTER 48 HOURS Narrative: Alert, pleasant. Oriented. Lungs with good air movement. Heart rate regular. Abdomen soft. No edema. Patient is globally very weak. Assessment and Plan (1) Abdominal mass Status: Acute Qualifiers: Abdominal location: generalized Qualified Code(s): R19.07 - Generalized intra-abdominal and pelvic swelling, mass and lump Category: Medical Code(s): R19.00 - Intra-abdominal and pelvic swelling, mass and lump, unspecified site (2) Atrial flutter with rapid ventricular response Status: Resolved Category: Medical Code(s): I48.92 - Unspecified atrial flutter (3) Retroperitoneal mass Status: Acute Category: Medical Code(s): R19.00 - Intra-abdominal and pelvic swelling, mass and lump, unspecified site (4) Thrombocytosis Status: Acute Category: Medical Code(s): D75.839 - Thrombocytosis, unspecified (5) Macrocytic anemia Status: Acute Category: Medical Code(s): D53.9 - Nutritional anemia, unspecified (6) Hypothyroid Status: Acute Category: Medical Code(s): E03.9 - Hypothyroidism, unspecified - Assessment and plan all Dx Assessment and Plan for all problems:: Plan will be to ramp up nutrition today. He will get up and in a chair. We have arranged for a bedside commode. Probable discharge tomorrow if heart rate remains regular. Start cautious Synthroid dosing.
--- NOTE | 2021-06-02 18:52 | PC.NURSE ---
no acute events throughout shift. Patient continues to complain of intermittent nausea. Zofran PRN given as needed
[2021-06-03] VITALS: BP 120/66; PULSE 90; PULSE 91; RESP 19; TEMP 36.8; O2SAT 95
[2021-06-03 04:00] VITALS: BP 116/56; PULSE 80; PULSE 90; RESP 17; TEMP 36.7; O2SAT 94
[2021-06-03 05:00] VITALS: BMI 48.0
--- NOTE | 2021-06-03 07:14 | PC.NURSE ---
pt rested well, no complaints or issues, iv remains saline locked, pt refused levothyroxine this am and requested to talk to doctor before he takes it. VSS, tele is sinus to sinus tach with BBB.
[2021-06-03 08:00] VITALS: BP 132/62; PULSE 100; PULSE 90; RESP 18; TEMP 36.6; O2SAT 90
--- NOTE | 2021-06-03 08:15 | PC.NURSE ---
Patient refuses to take synthroid despite education on use until he is able to speak with provider.
--- NOTE | 2021-06-03 09:00 | HMH.DCSUM ---
General - General Admission date:: 05/31/21 Discharge date: 06/03/21 HPI HPI: 66-year-old white male who has not seen a doctor since Dr. Drummond in 2012, and he rarely went to the physician even before that, who presented to the emergency department at the behest of his early this morning because of 3 to 4 months of increasing weakness, fatigue, bloating and generalized pain. He has had shoulder pain, side pain and back pain. He has been taking quite a bit of aspirin, but stopped this about 4 5 days ago, and took a couple of Aleve 3 days ago which helped his shoulder pain. He finally got to the point where he was unable to walk around because of his global weakness and came to the hospital. In the emergency department he was found to be in atrial fib/flutter with a rate of 160. Also found to have significant abnormalities on a CT scan of his abdomen with a large retroperitoneal mass, some small bowel masses consistent with lymphoma and was admitted to the hospital for further evaluation. In discussion with him it turns out his father was diagnosed with some type of lymphoma that was rapidly advanced, and he 2 days later at [facility] from overwhelming disease. He has a sister who has breast cancer, no other significant family history. He has never participated in any kind of healthcare maintenance, cancer screening or other programs. Hospital Course Hospital Course: Patient was admitted. Atrial fibrillation was ameliorated with 1 dose of intravenous Cardizem. He remained somewhat tachycardic, p.o. Cardizem was started very cautiously given his somewhat low blood pressures. He tolerated this well however and with some IV fluids and better p.o. intake of fluids his blood pressure jus to the 100 range systolic and he tolerated the Cardizem well. CT scan of abdomen and pelvis revealed the ominous findings as noted in the ER documentation., Chest CT also showed masses with evidence of bony metastases in the ribs. He was taken to the radiology suite for CT-guided biopsy of the retroperitoneal mass and this was accomplished without complications on 06/01/2021. Did well with the procedure. He was monitored for another day with Cardizem, he was also placed on Zofran for nausea. Unfortunately, he still remains very weak, physical therapy evaluated him along with the nursing staff and he was able to transition from bed to chair and to a bedside commode fairly well. A bedside commode was obtained for his home. Laboratory studies also showed mild hypothyroidism. He was started on Synthroid 25 mcg daily, tolerated 1 dose of this well. This morning he is reached maximal medical improvement in the hospital setting. Obviously we await his biopsies. Have arranged an appointment with him for Friday in my office to go over biopsies and await probable oncology referral. He will be discharged home today when his sons get here who can help him get into his house. We have gone over safety issues with his house and his ability to walk seems to be fairly good at this point. I have encouraged him to try to maximize his p.o. intake and we will prescribe Zofran to help with this, along with Cardizem, levothyroxine and oxycodone for his cancer related bone pain that has been a problem over the past 4 to 6 weeks. Objective Vital signs: Temp Pulse Resp BP Pulse Ox 98.1 F 90 17 116/56 L 94 L 06/03/21 04:00 06/03/21 04:00 06/03/21 04:00 06/03/21 04:00 06/03/21 04:00 no acute distress, morbidly obese - *Routine HEENT Exam Head: Present: normocephalic Eye: Present: EOMI, PERRL ENT: Present: mucous membranes dry - *Routine Neck Exam Present: supple - *Routine Respiratory Exam Present: CTA bilaterally - *Routine Cardiovascular Exam Present: RRR - *Routine Abdominal Exam Present: soft, normoactive bowel sounds, obese. Absent: tenderness - *Routine Extremities Exam Absent:
[2021-06-04 05:40] LABS: Peripheral Smear Review Scanned Result
== END 2021-06-03 15:00 | disposition home or self-care (01) | DRG 841 ==
LOC: ER 05:35 → 2ND 05:55
PROVIDERS: Internal Medicine Adolescent Medicine; Admitting Provider Internal Medicine Adolescent Medicine; Emergency Provider Emergency Medicine; Visit Provider Internal Medicine Adolescent Medicine
DX: C83.33 Diffuse large B-cell lymphoma, intra-abdominal lymph nodes (principal); I48.92 Unspecified atrial flutter; Z20.822 Contact with and (suspected) exposure to COVID-19; D75.839 Thrombocytosis, unspecified; D53.9 Nutritional anemia, unspecified; E03.9 Hypothyroidism, unspecified
CPT/HCPCS: 49180; 36415; 71046; 71250; 73521; 74177; 77012; 80053; 80329; 81001; 82962; 83605; 83615; 83735; 83880; 84145; 84439; 84443; 84484; 84550; 85007; 85025; 85651; 86140; 87040; 87086; 87088; 87186; 93005; 93306; 96365; 96366; 96375; 99284; C9803; J2405; Q9967; U0003; U0005

== ENCOUNTER → 2021-06-07 11:32 | Outpatient (CLI) | payer BC, MEDICARE, SELFPAY ==
[2021-06-07 12:35] LABS: Basophils # 0.1 K/mm3 (0-0.2); Basophils % 0.8 % (0.1-2.0); Eosinophils # 0.2 K/mm3 (0.0-0.4); Eosinophils % 1.2 % (0.1-12.0); Hematocrit 36.6 % (42.0-52.0); Hemoglobin 11.6 g/dL (14.1-18.0); Lymphocytes # 0.6 K/mm3 (0.7-4.5); Lymphocytes % 4.5 % (10-50); Mean Corpuscular HGB Conc 31.7 g/dL (31.8-35.4); Mean Corpuscular Hemoglobin 24.2 pg (27.0-31.2); Mean Corpuscular Volume 76.6 fl (80-94); Mean Platelet Volume 7.4 fl (7.4-10.4); Monocytes # 0.7 K/mm3 (0.1-1.0); Monocytes % 5.1 % (1.7-9.3); Neutrophils # 11.7 K/mm3 (1.8-7.8); Neutrophils % 88.3 % (37.0-80.0); Platelet Count 739 K/mm3 (142-424); Red Blood Count 4.77 M/mm3 (4.60-6.20); Red Cell Distribution Width 20.4 % (11.5-17.5); White Blood Count 13.2 K/mm3 (4.8-10.8)
[2021-06-07 12:43] LABS: MANUAL DIFFERENTIAL MANUAL DIFFERENTIAL (MANUAL DIFF)
[2021-06-07 13:30] LABS: Chloride 100 mmol/L (98-107); Sodium 136 mmol/L (136-145)
[2021-06-07 13:33] LABS: Alanine Aminotransferase 21 U/L (12-78); Albumin Level 3.2 g/dl (3.5-5.0); Albumin/Globulin Ratio 1.1 (1.1-1.8); Alkaline Phosphatase 124 U/L (38-126); Aspartate Amino Transferase 41 U/L (17-59); Bilirubin,Total 0.5 mg/dl (0.2-1.3); Blood Urea Nitrogen 15 mg/dl (9-20); Carbon Dioxide 23 mmol/L (22.0-30.0); Estimated Glomerular Filt Rate 97 ml/min (>60); GFR (African American) 117 ML/MIN (>60); Globulin 2.8 g/dL (1.3-3.2); Glucose 87 mg/dl (74-100); Iron 30 ug/dL (49-181)
[2021-06-07 13:43] LABS: Total Iron Binding Capacity 190 ug/dL (261-462)
[2021-06-07 14:22] LABS: Ferritin 776 ng/ml (17.9-464)
[2021-06-07 15:05] LABS: Eosinophils % 1 % (0-3); Lymphocytes % 10 % (10-50); Monocytes % 5 % (2-9); Neutrophils % 84 % (42-76); Platelet Estimate Moderate Increase; Total Cells Counted 100
[2021-06-07 15:06] LABS: Microcytosis 1+; Spherocytes 1+
[2021-06-07 16:46] LABS: Uric Acid 6.9 mg/dl (3.5-8.5)
== END ==
PROVIDERS: Visit Provider Internal Medicine Hematology & Oncology
DX: C83.30 Diffuse large B-cell lymphoma, unspecified site (principal)
CPT/HCPCS: 36415; 80053; 82728; 83540; 83550; 84550; 85007; 85025